=== PATIENT | male | born 1960 | race Caucasian/White ===

== ENCOUNTER 2019-09-29 09:14 | Outpatient (REF) | payer MEDICAID, SELFPAY ==
[2019-09-29 20:50] LABS: COMMENT (LAB VIEW ONLY) 181.39 mg/dL
[2019-09-29 20:54] LABS: Microalb ug/mg Crea 88.2 ug/mg Cr
== END 2019-09-29 09:34 ==
LOC: NCHCN 09:14
PROVIDERS: PCP Physician Assistant; Visit Provider Physician Assistant
DX: E11.9 Type 2 diabetes mellitus without complications (principal); E78.5 Hyperlipidemia, unspecified; I10 Essential (primary) hypertension; R06.83 Snoring
CPT/HCPCS: 82043; 82570

== ENCOUNTER 2019-10-27 10:25 | Outpatient (REF) | payer MEDICAID, SELFPAY ==
[2019-10-27 20:14] LABS: ALT 40 U/L (16-63); AST 24 U/L (15-37); Albumin 3.9 g/dL (3.4-5.0); Alkaline Phosphatase 115 U/L (46-116); Anion Gap 10.7 mmol/L (3-11); BUN 36 mg/dL (7-18); Bilirubin, Total 0.6 mg/dL (0.2-1.0); CO2 24.3 mmol/L (21.0-32.0); CREATININE 1.54 mg/dL (0.70-1.30); Calcium 10.2 mg/dL (8.5-10.1); Calculated LDL 88 mg/dL (<100); Chloride 100 mmol/L (98-107); Cholesterol 148 mg/dL (<200); Estimated GFR 46.47 (mL/min/1.73m2); Glucose 147 mg/dL (74-106); HDL Cholesterol 37 mg/dL (40-60); Sodium 135 mmol/L (136-145); TSH 1.57 uIU/mL (0.36-3.74); Total Protein 7.4 g/dL (6.4-8.2); Triglyceride 118 mg/dL (<150)
== END 2019-10-27 10:45 ==
LOC: NCHCN 10:25
PROVIDERS: PCP Physician Assistant; Visit Provider Physician Assistant
DX: E78.5 Hyperlipidemia, unspecified (principal); E11.9 Type 2 diabetes mellitus without complications; R22.42 Localized swelling, mass and lump, left lower limb
CPT/HCPCS: 80053; 80061; 83036; 84443; 84550

== ENCOUNTER 2020-01-27 09:49 | Outpatient (REF) | payer MEDICAID, SELFPAY ==
[2020-01-27 21:32] LABS: Hemoglobin A1C 7.2 % (3.8-5.6)
[2020-01-27 21:42] LABS: Anion Gap 9.4 mmol/L (3-11); BUN 30 mg/dL (7-18); CO2 25.6 mmol/L (21.0-32.0); CREATININE 1.68 mg/dL (0.70-1.30); Calcium 9.1 mg/dL (8.5-10.1); Chloride 103 mmol/L (98-107); Estimated GFR 42.03 (mL/min/1.73m2); Glucose 152 mg/dL (74-106); Potassium 4.3 mmol/L (3.5-5.1); Sodium 138 mmol/L (136-145)
== END 2020-01-27 10:09 ==
LOC: NCHCN 09:49
PROVIDERS: PCP Physician Assistant; Visit Provider Physician Assistant
DX: E11.9 Type 2 diabetes mellitus without complications (principal)
CPT/HCPCS: 80048; 83036

== ENCOUNTER 2020-07-25 16:14 | Outpatient (REF) | payer MEDICAID, SELFPAY ==
[2020-07-26 13:50] LABS: COVID-19 RT-PCR UVMMC Result Negative (Negative)
== END 2020-07-25 16:15 | disposition home or self-care (01) ==
LOC: NCHCN 16:14
PROVIDERS: PCP Physician Assistant; Visit Provider Internal Medicine
DX: Z20.822 Contact with and (suspected) exposure to COVID-19 (principal)
CPT/HCPCS: U0003

== ENCOUNTER 2020-08-02 12:50 | Outpatient (REF) | payer MEDICAID, SELFPAY ==
--- OUTSIDE RECORDS SUMMARY | 2020-08-02 12:57 | XMS_ITS ---
:1960 Author Care Team Providers Name Role Phone RIA CARROLL MD Clothes Wringer [phone] SHANNA NIELSEN Primary Care Provider [phone] Allergies Code Code System Name Reaction Severity Status Onset NKDA ? Medications Name Status Start Date Stop Date ? ? alpha lipoic acid 300 mg capsule Completed 11/11/2019 12/07/2019 Take 1 capsule every day by oral route at bedtime. amitriptyline 25 mg tablet Completed 11/11/201912/06 Take 1 tablet every day by oral route at bedtime. atorvastatin 20 mg tablet Active 11/11/2019 Not av ailable Take 1 tablet every day by oral route at bedtime. biotin 5 mg tablet Completed 11/11/2019 12/07/2019 Take 2 tablets every day by oral route. Bydureon 2 mg/0.65 mL subcutaneous pen injector Completed 11/11/2019 12/07/2019 Inject 2 mg every week by subcutaneous route. gabapentin 300 mg capsule Active 11/11/2019 Not av ailable Take 1 capsule 3 times a day by oral route. glipizide 10 mg tablet Active 11/11/2019 Not avail able Take 1 tablet twice a day by oral route. indomethacin 50 mg capsule Active 11/11/2019 Not a vailable Take 1 capsule 3 times a day by oral route as needed. Lantus Solostar U-100 Insulin 100 unit/mL (3 mL) subcutaneou s pen Active 11/11/2019 Not available Inject 40 units twice a day by subcutaneous route. losartan 100 mg tablet Active 11/11/2019 Not avail able Take 1 tablet every day by oral route. metformin ER 500 mg 24 hr tablet,extended release Active 11/11/2019 Not available Take 1 tablet twice a day by oral route. Trulicity 1.5 mg/0.5 mL subcutaneous pen injector Active ? Not available Inject 0.5 mL every week by subcutaneous route. Notes: med rec 11/10/2019 wmd Problems Name Status Onset Date Source ? Diabetes Mellitus Active 11/26/2019 ? Hypercholesterolemia Active 11/26/2019 ? Acid Reflux Active 11/26/2019 ? Hypertensive Disorder Active 11/30/2019 ? 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 Cramp in Lower Leg Associated with Rest Active 12/07/19 20 ? Hyperlipidemia Active ? ? Neuropathy Active ? ? 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 ? Snoring Active ? ? Procedures Date Name Performed by ? 06/17/1980 Ankle Surgery Information not avai lable Notes: right 06/17/1973 Knee Surgery Information not avai lable Notes: left Results Lab Results Date Name Specimen Result Interpretation Description Value Range Status Address ? 11/11/2019 Cbc BLD ? Wbc 8.8 5.0-10.0 Final [place] 10*3/uL 10*3/uL [facility] L [facility] (Internal) : [address] ? ? BLD Low Rbc 3.88 4.60-6.00 Final [place] 10*6/uL 10*6/uL [facility] L [facility] (Internal) : [address] ? ? BLD Low Hgb 11.0 g/dL 14.0-18.0 Final [facility] g/dL [facility] L [facility] (Internal) : [address] ? ? BLD Low Hct 33.7 % 41.0-51.[address] [facility] L [facility] (Internal) : [address] ? ? BLD ? Mcv 86.9 fL 80.0-96.0 Final [facility] L [facility] (Internal) : [address] ? ? BLD ? Mch 28.4 pg 26.0-32.0 Final [facility] (Internal) : [address] ? ? BLD ? Mchc 32.6 g/dL 31.0-35.0 Final [place] g/dL [facility] (Internal) : [address] ? ? BLD ? Rdw 12.4 % 11.5-14.[address] [facility] L [facility] (Internal) : [address] ? ? BLD ? Plt 243 130-450 Final [place] 10*3/uL 10*3/uL [facility] (Internal) : [address] ? ? BLD ? Anc 6.34 ? Final [place] 10*3/uL [facility] (Internal) : [address] 11/11/2019 CMP, Serum or S ? g/r 103 mg/dL 74-106 Fin al [place] Plasma mg/dL [facility] (Internal) : [address] ? ? S ? Bun 18 mg/dL 9-20 Final [place] mg/dL [facility] (Internal) : [address] ? ? S ? Crea 1.00 0.66-1.25 Final [place] mg/dL mg/dL [facility] (Internal) : [address] ? ? S ? Ca 9.4 mg/dL 8.4-10.2 Final [place] mg/dL [facility] (Internal) : [address] ? ? S ? Na 140 137-145 Final [place] mmol/L mmol/L [facility] (Internal) : [address] ? ? S ? K 4.4 3.5-5.1 Final [place] mmol/L mmol/L [facility] (Internal) : [address] ? ? S ? Cl 101 98-107 Final [place] mmol/L mmol/L [facility] (Internal) : [address] ? ? S ? Tco2 29.0 22.0-30.0 Final [place] mmol/L mmol/L [facility] (Internal) : [address] ? ? S ? Tp 7.1 g/dL 6.3-8.2 Final [place] g/dL [facility] (Internal) : [address] ? ? S ? Alb 3.7 g/dL 3.5-5.0 Final [place] g/dL [facility] (Internal) : [address] ? ? S ? Tbil 0.5 mg/dL 0.2-1.3 Final [place] mg/dL [facility] (Internal) : [address] ? ? S ? Alp 80 U/L 50-136 Final [place] U/L [facility] (Internal) : [address] ? ? S ? Alt (Sgpt) 53 U/L 21-72 U/L [facility] [address] ? ? S ? Ast (Sgot) 34 U/L 17-59 U[facility]L [facility] [address] 11/11/2019 Vancomycin, S Low Vanco, 11.5 15.0-20.0 Sofia l [place] Trough, Serum Trough ug/mL ug/mL [facility] L [facility] (Internal) : [address] 11/10/2019 Cbc BLD ? Wbc 7.3 5.0-10.0 Final [place] 10*3/uL 10*3/uL [facility] (Internal) : [address] ? ? BLD Low Rbc 3.50 4.60-6.00 Final [place] 10*6/uL 10*6/uL [facility] (Internal) : [address] ? ? BLD Low Hgb 10.0 g/dL 14.0-18.0 Final [place] g/dL [facility] L ab (Internal) : [address] ? ? BLD Low Hct 31.1 % 41.0-51.[address] [facility] L ab (Internal) : [address] ? ? BLD ? Mcv 88.9 fL 80.0-96.0 Final [facility] L ab (Internal) : [address] ? ? BLD ? Mch 28.6 pg 26.0-32.0 Final [facility] L [facility] (Internal) : [address] ? ? BLD ? Mchc 32.2 g/dL 31.0-35.0 Final [place] [facility] g/dL [facility] L [facility] (Internal) : [address] ? ? BLD ? Rdw 12.5 % 11.5-14.[address] [facility] L [facility] (Internal) : [address] ? ? BLD ? Plt 209 130-450 Final [place] 10*3/uL 10*3/uL [facility] (Internal) : [address] ? ? BLD ? Anc 4.70 ? Final [place] 10*3/uL [facility] (Internal) : [address] 11/10/2019 Uric Acid, S ? Urca 5.2 mg/dL 3.5-8.5 Final [place] Serum or mg/dL [facility] (Internal) : [address] 11/10/2019 HbA1C BLD High Ha1C 8.0 % 4.0-6.0 % Final [place] (Hemoglobin Count ry a1C), [facility] (Internal) : [address] 11/10/2019 CMP, Serum or S High g/r 137 mg/dL 74-106 Fin al [place] Plasma mg/dL [facility] (Internal) : [address] ? ? S High Bun 24 mg/dL 9-20 Final [place] mg/dL [facility] (Internal) : [address] ? ? S ? Crea 1.00 0.66-1.25 Final [place] mg/dL mg/dL [facility] (Internal) : [address] ? ? S ? Ca 9.1 mg/dL 8.4-10.2 Final [place] mg/dL [facility] (Internal) : [address] ? ? S ? Na 138 137-145 Final [place] mmol/L mmol/L [facility] (Internal) : [address] ? ? S ? K 4.5 3.5-5.1 Final [place] mmol/L mmol/L [facility] (Internal) : [address] ? ? S ? Cl 104 98-107 Final [place] mmol/L mmol/L [facility] (Internal) : [address] ? ? S ? Tco2 26.0 22.0-30.0 Final [place] mmol/L mmol/L [facility] (Internal) : [address] ? ? S ? Tp 6.7 g/dL 6.3-8.2 Final [place] g/dL [facility] (Internal) : [address] ? ? S ? Alb 3.6 g/dL 3.5-5.0 Final [place] g/dL [facility] (Internal) : [address] ? ? S ? Tbil 0.4 mg/dL 0.2-1.3 Final [place] mg/dL [facility] (Internal) : [address] ? ? S ? Alp 82 U/L 50-136 Final [place] U/L [facility] (Internal) : [address] ? ? S ? Alt (Sgpt) 50 U/L 21-72 U/L Final No rth [facility] L [facility] (Internal) : [address] ? ? S ? Ast (Sgot) 45 U/L 17-59 U/L Final No rth [facility] L [facility] (Internal) : [address] 11/10/2019 COVID-19 RNA SWAB ? 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 ? SWAB ? Performing panther ? [facility] L [facility] (Internal) : [address] Past Encounters 12/07/2019 Snoring; Cramp in Lower Leg Associated w ith Rest Ginette Prather [employer] WORKER: [address] [place] [address], Ph. 11/26/2019 Balaji Krause MD: [address] [facility], [address], [place] [address], Ph. Social History Tobacco Smoking Status Never Smoker Vaccine List None recorded. Plan of Care Reminders Provider Appointments None ? ? recorded. Lab None ? ? recorded. Referral None ? ? recorded. Procedures None ? ? recorded. Surgeries None ? ? recorded. Imaging None ? ? recorded. Vitals 12/07/2019 09:00AM New Patient 45 Height Weight BMI Blood Pressure 175.26 cm 97.52 kg 31.7 kg/m2 158/83 mm[Hg] 11/26/2019 09:30AM Office 30 Height Weight BMI 175.26 cm 97.52 kg 31.7 kg/m2
[2020-08-02 15:29] LABS: Anion Gap 10.2 mmol/L (3-11); BUN 17 mg/dL (7-18); CO2 25.8 mmol/L (21.0-32.0); CREATININE 1.3 mg/dL (0.70-1.30); Calcium 10.1 mg/dL (8.5-10.1); Chloride 104 mmol/L (98-107); Estimated GFR 56.31 (mL/min/1.73m2); Glucose 106 mg/dL (74-106); Potassium 4.5 mmol/L (3.5-5.1); Sodium 140 mmol/L (136-145)
[2020-08-02 15:46] LABS: Hemoglobin A1C 8.3 % (<5.7)
== END 2020-08-02 12:51 | disposition home or self-care (01) ==
LOC: NCHCN 12:50
PROVIDERS: PCP Physician Assistant; Visit Provider Physician Assistant
DX: E11.40 Type 2 diabetes mellitus with diabetic neuropathy, unspecified (principal)
CPT/HCPCS: 80048; 83036

== ENCOUNTER 2020-11-03 18:39 | Outpatient (REF) | payer MEDICAID, SELFPAY ==
[2020-11-03 19:02] LABS: COMMENT (LAB VIEW ONLY) 332.45 mg/dL; Microalb ug/mg Crea 18.5 ug/mg Cr
== END 2020-11-03 18:40 | disposition home or self-care (01) ==
LOC: NCHCN 18:39
PROVIDERS: PCP Physician Assistant; Visit Provider Physician Assistant
DX: E11.40 Type 2 diabetes mellitus with diabetic neuropathy, unspecified (principal)
CPT/HCPCS: 82043; 82570

== ENCOUNTER 2021-05-24 11:27 | Outpatient (REF) | payer MEDICAID, SELFPAY ==
--- NOTE | 2021-05-24 09:45 | SKI_PTH ---
PATIENT: Harley Peterson LOC: [facility]IL U#:[id number] AGE/SX: 60/M ROOM: RE05/24/[address]: Annie Mcnally : 1960 BED: DIS: 05/24/2021 SPEC #: [id number] RECD: 05/25/21 12:26 STATUS: IHSAN REKalyn #: [id number] MATTI: 05/24/21 09:[address]: Annie Mcnally DEPT: Surgical Specimen RECD BY: Kimberly Lewis Tissues: 1 - SKIN BIOPSY(SHAVE/PUNCH) Procedures: SKIN LEVEL 4 Comments: [id number]
== END 2021-05-24 11:28 | disposition home or self-care (01) ==
LOC: LBN 11:27
PROVIDERS: PCP Physician Assistant; Visit Provider Physician Assistant
DX: D18.01 Hemangioma of skin and subcutaneous tissue (principal)
CPT/HCPCS: 88305

== ENCOUNTER 2021-08-21 18:07 | Outpatient (REF) | payer MEDICAID, SELFPAY | END 2021-08-21 18:08 | disposition home or self-care (01) | LOC: NCHCN 18:07 | PROVIDERS: PCP Physician Assistant; Visit Provider Nurse Practitioner Family | DX: R22.42 Localized swelling, mass and lump, left lower limb (principal); D48.5 Neoplasm of uncertain behavior of skin | CPT/HCPCS: 87070; 87205 ==